=== PATIENT | female | born 2005 | race African-American/Black ===

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

== ENCOUNTER 2025-01-16 15:27 | Emergency (ER) | payer BC ==
[2025-01-16 15:41] VITALS: BP 111/78; PULSE 80; RESP 20; TEMP 97.9; BMI 20.3
[2025-01-16] MEDS ORDERED: IBUPROFEN 600 MG TABLET (FP) PO ONE (16:45)
[2025-01-16] MEDS: IBUPROFEN 600 MG TABLET (FP) PO ONE (16:46)
[2025-01-16] MEDS ORDERED: LIDOCAINE 2.5%/PRILOCAINE 2.5% (5 Gram/TUBE) TP ONE (16:56)
[2025-01-16] MEDS: LIDOCAINE 2.5%/PRILOCAINE 2.5% 30 GRAM TUBE TP ONE (16:59)
[2025-01-16] MEDS ORDERED: CEPHALEXIN MONOHYDRATE 500 MG CAPSULE (UD) ONE (17:58)
[2025-01-16] MEDS: CEPHALEXIN MONOHYDRATE 500 MG CAPSULE (UD) PO ONE (18:00)
== END 2025-01-16 20:14 | disposition home or self-care (01) ==
LOC: JERFT 15:27
PROC: 0HC6XZZ Extirpation of Matter from Back Skin, External Approach (ICD-10-PCS; principal; 2025-01-16)
DX: S30.850A Superficial foreign body of lower back and pelvis, initial encounter (principal); R21 Rash and other nonspecific skin eruption; W45.8XXA Other foreign body or object entering through skin, initial encounter
CPT/HCPCS: 99283-25